=== PATIENT | male | born 1975 | race Caucasian/White ===

== ENCOUNTER 2021-07-15 11:10 | Outpatient (REF) | payer MEDICARE, MEDICAID, SELFPAY | END 2021-07-15 11:11 | disposition home or self-care (01) | LOC: HO.HMGCLDS 11:10 | PROVIDERS: Visit Provider Internal Medicine | DX: Z20.822 Contact with and (suspected) exposure to COVID-19 (principal) | CPT/HCPCS: C9803; U0003; U0005 ==

== ENCOUNTER 2021-07-24 11:38 | Emergency (ER) | payer MEDICARE, MEDICAID, SELFPAY ==
[2021-07-24 11:41] VITALS: BP 180/90; PULSE 78; RESP 18; TEMP 36.4; O2SAT 97; BMI 34.2
--- NOTE | 2021-07-24 12:14 | ED.GENADULT ---
HPI - General Adult General Chief complaint: Wound/Laceration Stated complaint: laceration lt thumb Time Seen by Provider: 07/24/21 12:13 Source: patient Limitations: no limitations History of Present Illness HPI narrative: Patient presents to the ER with a laceration to the left thumb. Patient states he was using a tool at home and cut the top of his left thumb. Bleeding was controlled with pressure. Patient believes his tetanus shot is up-to-date as it has been within the last 5 years. Patient has slight pain over the thumb. Patient states he has full range of motion of the thumb and the left hand. No other complaints at this time. Related Data Allergies Allergy/AdvReac Type Severity Reaction Status Date / Time No Known Allergies Allergy Verified 07/24/21 11:40 Review of Systems Review of Systems: Constitutional: No Fever, No Chills ENT/Mouth: No Swallowing Difficulty Cardiovascular: No Chest Pain, No SOB Respiratory: No Cough, No Sputum Gastrointestinal: No Nausea, No Vomiting Musculoskeletal: Left thumb laceration slight pain Skin: Positive laceration left thumb dorsum Neuro: No Weakness, No Numbness, No Dizziness, No Headache Psych: No Anxiety/Panic, No Depression Heme/Lymph: No Bruising, No Lymphadenopathy PMFSH Past Medical History Attestation statement: The following information was validated with the patient. Medical History Torsion, testicular Social History Social History Advance Directives: No Advance Directives Information Provided: No Physical Exam Vital Signs: Vital Signs: Last Vital Signs Temp 97.5 F 07/24/21 11:41 Pulse 78 07/24/21 11:41 Resp 18 07/24/21 11:41 BP 180/90 H 07/24/21 11:41 Pulse Ox 97 07/24/21 11:41 Body Mass Index 34.2 vital signs have been reviewed as normal and appeared to be correct. Blood pressure normal. Heart rate normal. Respiration rate normal. Temperature normal. Oxygen saturation normal. Appearance: Alert. Oriented X3. No acute distress. Head: Normal external exam. Normocephalic. Atraumatic. Eyes: PERRLA. EOMI. Conjunctiva and sclera normal. ENT: Pharynx normal. Uvula midline. Moist mucous membranes. Back: Full range of motion noted. Skin: 2 cm laceration on the dorsum of the left thumb approximately the D IP joint positive capillary refill positive proximal pulses Extremities: Full flexion and extension of the left hand and left thumb. Neuro: Oriented X 3. No motor deficit. No sensory deficit. Reflexes normal. Course Course Course Narrative: Left thumb 2 cm laceration Left thumb abrasion Left thumb strain Patient's tetanus status is up-to-date. Procedures Procedure Narrative Procedure Narrative: Left thumb laceration 2 cm dorsum aspect Wound cleaned with Betadine saline Anesthetized with 1% lidocaine Irrigated with saline Betadine and copiously pro foreign body Patient has full range of motion of the left thumb. Positive flexion and extension 4.0 nylon times x5 Wound dressed and splinted Discharge Plan Discharge Clinical Impression: Laceration of thumb Qualifiers: Encounter type: initial encounter Damage to nail status: without damage Foreign body presence: without foreign body Laterality: left Qualified Code(s): S61.012A - Laceration without foreign body of left thumb without damage to nail, initial encounter Patient Disposition: Home, Self-Care Instructions: Laceration (ED) Additional Instructions: Suture removal 7-10 days keep wound clean and dry Avoid overuse of the left thumb to avoid wound dehiscence
[2021-07-24] MEDS: Lidocaine HCl 1 % 20 ML VIAL INFILTRATI (12:21)
== END 2021-07-24 13:07 | disposition home or self-care (01) ==
PROVIDERS: Emergency Provider Emergency Medicine
DX: S61.012A Laceration without foreign body of left thumb without damage to nail, initial encounter (principal); S60.312A Abrasion of left thumb, initial encounter; M79.642 Pain in left hand; W27.8XXA Contact with other nonpowered hand tool, initial encounter; Y93.9 Activity, unspecified; Y92.009 Unspecified place in unspecified non-institutional (private) residence as the place of occurrence of the external cause; Y99.9 Unspecified external cause status
CPT/HCPCS: 12001; 99283; 99284

== ENCOUNTER 2021-08-19 07:22 | Emergency (ER) | payer MEDICARE, MEDICAID, SELFPAY ==
--- NOTE | ~2021-08-19 | XR_ITS ---
EXAMINATION: XR CHEST CLINICAL INFORMATION: Cough. COMPARISON: None TECHNIQUE: Frontal view of the chest was obtained. FINDINGS: No significant abnormality is noted involving the heart, lungs, mediastinum, bony thorax or soft tissues. XR/XR chest 1V IMPRESSION: Unremarkable chest exam
[2021-08-19 07:32] VITALS: BP 169/99; PULSE 116; RESP 18; TEMP 36.6; O2SAT 96; BMI 34.2
--- NOTE | 2021-08-19 07:36 | ED.ASTHMA ---
HPI - Asthma General Chief Complaint: Dyspnea Stated Complaint: difficulty breathing Time Seen by Provider: 08/19/21 07:31 Source: patient Mode of arrival: ambulatory Limitations: no limitations History of Present Illness MD complaint: asthma attack , shortness of breath and wheezing Onset (ago): day(s) (3) Severity: moderate Context: none known Associated symptoms: productive cough Treatments Prior to Arrival: other (ran out of INH) Related Data Previous Rx's Medication Instructions Recorded albuterol sulfate 90 mcg/actuation 2 puff INHALATION QID PRN #6.7 g 08/19/21 aerosol inhaler prednisone 20 mg tablet 60 mg PO DAILY 4 Days #12 tab 08/19/21 Allergies Allergy/AdvReac Type Severity Reaction Status Date / Time No Known Allergies Allergy Verified 07/24/21 11:40 Review of Systems Review of Systems: Constitutional : No Fever, No Chills ENT/Mouth : No Hoarseness, No sore throat, No Rhinorrhea Eyes: No Redness, No Discharge, No Vision Changes Cardiovascular : No Chest Pain, positive SOB, positive Dyspnea on Exertion, No Edema Respiratory : positive Cough, No Sputum, positive Wheezing, Gastrointestinal : No Nausea, No Vomiting, No Diarrhea, No abdominal Pain Genitourinary : No Dysuria, No Hematuria Musculoskeletal : No joint pain, No Myalgias Skin : No rash Neuro : No Weakness, No Numbness, No Headache Psych : No anxiety, depression Heme/Lymph: No Bruising, No Bleeding Endocrine : No Polyuria, No Polydipsia All other systems reviewed and are negative PMFSH Past Medical History Attestation statement: The following information was validated with the patient. Medical History Asthma Torsion, testicular Social History Social History (Updated 08/19/21 @ 07:36 by Genesis Rueda DO) Alcohol intake: never Patient Tobacco Use Status: Current everyday Tobacco user Use of substances other than those prescribed or required for medical reasons: No Advance Directives: No Physical Exam Vital Signs: Vital Signs: Last Vital Signs Temp 98 F 08/19/21 07:32 Pulse 82 08/19/21 08:41 Resp 18 08/19/21 07:32 BP 169/99 H 08/19/21 07:32 Pulse Ox 96 08/19/21 07:32 Body Mass Index 34.2 Appearance: Alert. Oriented X3. No acute distress. Eyes: Pupils equal, round and reactive to light. ENT: Pharynx normal. Neck: Normal inspection. Neck supple. CVS: Normal heart rate and rhythm. Pulses normal. Respiratory: No respiratory distress. Breath sounds diffuse mild end exp wheezes Abdomen: Soft and nontender. Skin: Skin warm and dry. Normal skin color. Normal skin turgor. Extremities: No lower extremity edema. No calf ttp Neuro: Oriented X 3. No motor deficit. No sensory deficit. Course Course Course Narrative: negative COVID, negative chest xray he is improved, no hypoxia stable for DC MDM - Asthma MDM Narrative Medical decision making narrative: 46 yo male with asthma attack ran out of INH here with wheezing no CP, no fevers he is not vaccinated. At this time 5mg neb, PO steroids, CXR for pneumonia, COVID swab ordered. Dispo per improvement with treatments. Lab Data Labs: Lab Results 08/19/21 Range/Units 07:50 COVID-19 ([facility]) Negative (Negative) COVID-19 Clin Com See Note Discharge Plan Discharge Clinical Impression: Asthma with exacerbation Qualifiers: Asthma severity: moderate Asthma persistence: persistent Qualified Code(s): J45.41 - Moderate persistent asthma with (acute) exacerbation Patient Disposition: Home, Self-Care Instructions: Asthma (ED) Additional Instructions: return to ED for any worsening symptoms or concerns NEGATIVE COVID Prescriptions: New prednisone 20 mg tablet 60 mg PO DAILY 4 Days Qty: 12 RF: 0 albuterol sulfate 90 mcg/actuation HFA aerosol inhaler 2 puff inhalation QID PRN (Reason: shortness of breath or wheezing) Qty: 6.7 RF: 0 Referrals: Physician,None [Primary Care Provider] - 2 days Stand Alone Forms: Work/School Release
[2021-08-19] MEDS: predniSONE 20 MG TABLET 60 MG PO (07:49)
[2021-08-19 08:24] LABS: COVID-19 Test Negative (Negative); IDNOW Serial# 08D9AD1C
--- NOTE | 2021-08-19 08:27 | PC.NURSE ---
0809 resp called for 2nd time for treatment
[2021-08-19] MEDS: Albuterol Sulfate (0.083%) 2.5 MG/3 ML VIAL.NEB 5 MG INHALE (08:39)
[2021-08-19 08:41] VITALS: PULSE 82; O2SAT 95
== END 2021-08-19 09:33 | disposition home or self-care (01) ==
PROVIDERS: Emergency Provider Emergency Medicine
DX: J45.41 Moderate persistent asthma with (acute) exacerbation (principal); R06.00 Dyspnea, unspecified; F17.200 Nicotine dependence, unspecified, uncomplicated; Z71.6 Tobacco abuse counseling; Z79.899 Other long term (current) drug therapy
CPT/HCPCS: 36415; 71045; 87635; 94640; 99284

== ENCOUNTER 2021-08-20 05:53 | Inpatient (IN) | payer MEDICARE, MEDICAID, SELFPAY ==
[2021-08-20] VITALS (13 sets, daily range): BP systolic 136–187; BP diastolic 72–111; PULSE 72–112; RESP 16–20; TEMP 36.6–37.5; O2SAT 89–98; BMI 34.2
--- NOTE | ~2021-08-20 | XR_ITS ---
EXAMINATION: XR CHEST CLINICAL INFORMATION: Asthma attack. Shortness of breath. Rule out pneumonia. COMPARISON: Previous chest x-ray from yesterday TECHNIQUE: 2 views of the chest were obtained. FINDINGS: The cardiac and mediastinal contours are normal. The lungs are clear. There is no pleural effusion or pneumothorax. There are degenerative changes of the spine. XR/XR chest 2V IMPRESSION: No evidence for acute disease in the chest.
[2021-08-20] MEDS: Albuterol/Iprat 2.5/0.5MG 3 ML AMPUL.NEB INHALE ×4 (06:11→20:02)
[2021-08-20] MEDS: Albuterol Sulfate (0.083%) 2.5 MG/3 ML VIAL.NEB 5 MG INHALE ×2 (06:11→08:31)
--- NOTE | 2021-08-20 06:11 | ED_ITS ---
HPI - Asthma General Chief Complaint: Asthma Stated Complaint: asthma Time Seen by Provider: 08/20/21 06:03 Source: patient Mode of arrival: EMS Limitations: no limitations History of Present Illness HPI Narrative: Patient history of asthma frequent episodes with it and ran out of his inhaler 2 days ago was seen here yesterday was given nebulizing treatment prednisone chest x-ray was negative COVID test was negative comes back again as does not have any inhaler and could not get the new inhaler additions and covered with wheezing frequent cough saturating 94% room air no chest pain no cardiac history no fever Related Data Previous Rx's Medication Instructions Recorded albuterol sulfate 90 mcg/actuation 2 puff INHALATION QID PRN #6.7 g 08/19/21 aerosol inhaler prednisone 20 mg tablet 60 mg PO DAILY 4 Days #12 tab 08/19/21 albuterol sulfate 2.5 mg INHALATION Q4-6H PRN #180 ml 08/20/21 fluticasone fur. 200 mcg-umeclid 1 inh INHALATION DAILY #60 ea 08/20/21 62.5 mcg-vilant 25 mcg inhalat.powder (Trelegy Ellipta) nebulizers #1 ea 08/20/21 Allergies Allergy/AdvReac Type Severity Reaction Status Date / Time No Known Allergies Allergy Verified 07/24/21 11:40 Review of Systems Review of Systems: Yes all other systems are reviewed and are negative PMFSH Past Medical History Medical History Asthma Torsion, testicular Social History Social History Alcohol intake: never Patient Tobacco Use Status: Current everyday Tobacco user Use of substances other than those prescribed or required for medical reasons: No Advance Directives: No Physical Exam Vital Signs: Vital Signs: Last Vital Signs Temp 98.1 F 08/20/21 06:05 Pulse 86 08/20/21 06:12 Resp 20 08/20/21 06:05 BP 149/80 H 08/20/21 06:05 Pulse Ox 94 08/20/21 06:05 Oxygen Flow Rate 15 08/20/21 06:05 Body Mass Index 34.2 Appearance: Alert. Oriented X3. In moderate distress ENT: Pharynx normal. Oral Mucosa moist Neck: Normal inspection. Neck supple. CVS: Normal heart rate and rhythm. Pulses normal. Respiratory: Mod respiratory distress. With frequent cough unable to speak full sentences without cough Equal air entry bilateral, bilateral wheezing and rhonchi no rales Abdomen: Soft and nontender. Bowel sounds are present, no mass palpable, Skin: Skin warm and dry. Normal skin color. Normal skin turgor. Extremities: No lower extremity edema. No calf tenderness Neuro: Oriented X 3. No motor deficit. Discharge Plan Discharge Clinical Impression: Asthma with acute exacerbation Qualifiers: Asthma severity: moderate Asthma persistence: persistent Qualified Code(s): J45.41 - Moderate persistent asthma with (acute) exacerbation Patient Disposition: Home, Self-Care Instructions: Asthma (ED) Additional Instructions: Use inhaler/nebulizer as advised Continue her prednisone Start on Trelegy inhaler once daily Follow-up with PCP/booking manager Prescriptions: New Trelegy Ellipta 200-62.5-25 mcg blister with device 1 inh inhalation DAILY Qty: 60 RF: 3 (DME) nebulizers Misc See Rx Instructions .Route Qty: 1 RF: 0 albuterol sulfate 2.5 mg /3 mL (0.083 %) solution for nebulization 2.5 mg inhalation Q4-6H PRN (Reason: bronchospasm) Qty: 180 RF: 2 No Action prednisone 20 mg tablet 60 mg PO DAILY 4 Days Qty: 12 RF: 0 albuterol sulfate 90 mcg/actuation HFA aerosol inhaler 2 puff inhalation QID PRN (Reason: shortness of breath or wheezing) Qty: 6.7 RF: 0 Referrals: Kashmir Celestin MD [Physician] - 1 week
[2021-08-20] MEDS: dexAMETHasone 2 MG TABLET 10 MG PO ×2 (06:20→09:45)
[2021-08-20] MEDS: Albuterol Sulfate 90 MCG 8 GM INHALER 4 PUFF INHALE (06:20)
--- NOTE | 2021-08-20 07:56 | ECG_ITS ---
Test Reason : ASTHMA Blood Pressure : / mmHG Vent. Rate : 085 BPM Atrial Rate : 085 BPM P-R Int : 146 ms QRS Dur : 086 ms QT Int : 384 ms P-R-T Axes : 034 002 004 degrees QTc Int : 456 ms Normal sinus rhythm with sinus arrhythmia Normal ECG No previous ECGs available Referred By: Gael Ingram Electronically Signed By:MANUEL ESPINOZA
[2021-08-20 08:30] LABS: MANUAL DIFF FLAG NO
[2021-08-20 08:36] LABS: Hematocrit 45.3 % (42-52); Hemoglobin 15.5 g/dl (14.0-18.0); Imm Gran Abs Auto 0.02 X10*3/uL (0.00-0.03); Imm Gran Pct Auto 0.3 % (0.0-0.4); Lymphocytes Absolute Auto 0.4 X10*3/uL (1.2-4.9); Lymphocytes Percent Auto 5.9 % (20-40); Mean Corpuscular HGB Conc 34.2 g/dl (31.0-36.0); Mean Corpuscular Hemoglobin 31.6 pg (27.0-33.0); Mean Corpuscular Volume 92.3 fL (80-98); Mean Platelet Volume 10.3 fL (9.4-12.4); Monocytes Absolute Auto 0.6 X10*3/uL (0.1-1.2); Monocytes Percent Auto 8.4 % (2-11); Neutrophils Absolute Auto 5.8 X10*3/uL (2.0-8.3); Neutrophils Percent Auto 85.4 % (45-73); Platelet Count 216 X10*3/uL (160-400); Red Blood Count 4.91 X10*6/uL (4.60-5.80); Red Cell Distribution Width 12.9 % (11.0-16.0); White Blood Count 6.8 X10*3/uL (4.8-10.8)
[2021-08-20 08:49] LABS: COVID-19 Test Negative (Negative)
[2021-08-20 09:01] LABS: Lactic Acid 3.1 mmol/L (0.5-2.0)
[2021-08-20 09:04] LABS: Troponin-I High Sensitivity 6.1 ng/L (<3.5-35.0)
--- NOTE | 2021-08-20 09:05 | PM.IMHP ---
History of Present Illness Date of Service: 08/20/21 Chief Complaint: shortness of breath and wheezing This is a 46 yo M with a PMH of asthma (since childhood) and suspected allergic rhinitis who presents to the emergency department for the second time in 2 days for complaints of shortness of breath, wheezing and a productive cough (brown/green). The patient presented to the ED yesterday where he was treated with prednisone and albuterol inhalers. His symptoms improved and he was discharged home with a course of oral steroids and albuterol inhaler. The patient was able to sweet pickle maker his prednisone but not his inhaler and so he presented to the ED with the same complaints again. He was again treated in the hospital, given an albuterol inhalers to go home with. However, he was noted to be hypoxic down to 89% AFTER treatment and so admission was requested. In regards to his asthma history, the patient reports asthma since childhood. He also describes allergic rhinitis symptoms with the change of seasons. He reports he was previously on symbicort and PRN albuterol inh. He reports that he stopped symbicort about 2 years ago due to insurance issues. He reports that since then, he has required daily albuterol use which has increased to 4-5 times a day over the last several day. He reports active tobacco smoking and endorses that he has had a productive cough of brown/green sputum over the last several days. He denies any pleuritic or anginal chest pain. He denies any fevers or chills. He denies any known sick contacts, particularly to COVID 19. He denies being vaccinated against COVID. Review of Systems Review of Systems: General - denies fevers or chills, denies weakness or fatigue HEENT -denies blurred vision, denies headache, denies sore throat Cardiovascular - denies chest pain or palpitations, denies edema Respiratory - +SOB, +productive cough, + wheezing Gastrointestinal - denies abdominal pain, nausea, vomiting, diarrhea - denies flank pain, denies dysuria, denies frequency or urgency Musculoskeletal - denies back pain, denies hip pain, denies knee pain, denies shoulder pain Neurological - denies any focal weakness or numbness Skin, denies any bruising or redness Psychiatric - denies any suicidal ideation, hallucinations, homicidal ideation Endocrinology - denies intolerance to hot / cold temperatures PMFSH Medical History (Updated 08/20/21 @ 11:05 by Nabor Suggs MD) Asthma Family History (Updated 08/20/21 @ 10:51 by Nabor Suggs MD) Other Diabetes mellitus Pertinent family history: . Surgical History (Updated 08/20/21 @ 10:52 by Nabor Suggs MD) Torsion, testicular Social History (Updated 08/20/21 @ 10:53 by Nabor Suggs MD) Alcohol intake: current Alcohol intake frequency: a few times a month Patient Tobacco Use Status: Current everyday Tobacco user Use of substances other than those prescribed or required for medical reasons: No Advance Directives: No Meds Allergies Allergy/AdvReac Type Severity Reaction Status Date / Time No Known Allergies Allergy Verified 07/24/21 11:40 Active Medications: Current Medications Pharmacy Consult (Consult Rx Perform Med Rec) 1 each MISCELLANE ONCE PRN PRN Reason: Consult order Physical Exam Vital Signs and Narrative: Vital Signs: Last Vital Signs Temp 98.1 F 08/20/21 06:05 Pulse 81 08/20/21 08:33 Resp 20 08/20/21 06:05 BP 149/80 H 08/20/21 06:05 Pulse Ox 89 L 08/20/21 07:42 Oxygen Flow Rate 15 08/20/21 06:05 Body Mass Index 34.2 Const: Other: Constitutional - Awake and Alert, respiratory distress with exertion Eyes - PERRLA, EOMI Cardiovascular - S1S2, RRR, No edema Respiratory - diffuse wheezing, no rales, tachypnea with exertion; O2 saturation 89% on RA, high 90s on 1L Gastrointestinal - NT / ND; +BS; No rebound or guarding - No CVA tenderness Extremities - no calf tenderness bilaterally, no swelling Musculoskeletal - Normal inspection, normal ROM Skin - Warm/Dry Neurological - Alert & oriented x3, No focal deficit Psychological - Appropriate affect Results Labs CBC and Chem 7: 08/20/21 08:24 08/20/21 08:24 Labs: Laboratory Results - last 24 hr 08/20/21 08/20/21 08/20/21 08:24 08:24 08:24 MCV 92.3 MCH 31.6 MCHC 34.2 RDW 12.9 Plt Count 216 MPV 10.3 Immature Gran % (Auto) 0.3 Neut % (Auto) 85.4 H Lymph % (Auto) 5.9 L [place] % (Auto) 8.4 Eos % (Auto) 0.0 Baso % (Auto) 0.0 Lymph # (Auto) 0.4 L [place] # (Auto) 0.6 Eos # (Auto) 0.0 Baso # (Auto) 0.0 Abs Immat Gran (auto) 0.02 Absolute Neuts (auto) 5.8 Absolute Nucleated RBC 0.000 Nucleated RBC % (auto) 0.0 Lactic Acid 3.1 H* Troponin I High Sens COVID-19 ([facility]) Negative COVID-19 Clin Com See Note 08/20/21 08:24 MCV MCH MCHC RDW Plt Count MPV Immature Gran % (Auto) Neut % (Auto) Lymph % (Auto) [place] % (Auto) Eos % (Auto) Baso % (Auto) Lymph # (Auto) [place] # (Auto) Eos # (Auto) Baso # (Auto) Abs Immat Gran (auto) Absolute Neuts (auto) Absolute Nucleated RBC Nucleated RBC % (auto) Lactic Acid Troponin I High Sens 6.1 COVID-19 ([facility]) COVID-19 Clin Com ECG Attestation: I personally reviewed and interpreted this ECG as follows: (NSR) Imaging Comment: CXR - no acute findings Assessment and Plan (1) Acute respiratory failure with hypoxia: Status: Acute (2) Asthma with acute exacerbation: Qualifiers: Asthma persistence: persistent Asthma severity: moderate Qualified Code(s): J45.41 - Moderate persistent asthma with (acute) exacerbation Status: Acute This is a 46 yo M who is an active tobacco smoker and has a baseline history of asthma which was previously controlled with symbicort. He has been on his controlled inhalers for >2 years and has been using PRN albuterol daily. He now presents to the hospital for the second time in 2 days with complaints of shortness of breath, wheezing and a productive cough. He was found to be hypoxic post treatment in the ED. He has failed outpatient treatment and furthermore does not have a PCP which limits close outpatient follow up. He will be admitted for further treatment. 1. Acute Respiratory Failure with hypoxia Due to Asthma exacerbation + bacterial bronchitis Continue 1-2L O2 by NC - wean as tolerated 2. Asthma exacerbation Due to non-compliance with controlled medications Start IV solu-medrol Start DuoNebs scheduled + PRN Will need outpatient follow up with a PCP and/or cyber engineer. He does smoke 1 PPD so he now may have COPD as well. 3. Suspected bacterial bronchitis IV doxy 4. Lactic acidosis Suspect from neb Rx and not severe sepsis. Given fluid bolus by ED 5. Transaminitis Bili wnl and no abdominal symptoms Not in the usual 2:1 (AST/ALT) fashion seen with EtOH use (Patient also endorses drinking a few beers once a week). Trend. If increasing, further work up Will need outpatient follow up Full Code DVT pptx, Lovneox Given his failure of outpatient treatment and hypoxia post treatment, I anticipate he will need 2-3 days of systemic steroids and scheduled nebulizers for stabilization. Quality Stroke Does the patient have a stroke diagnosis?: No VTE Prior VTE?: No VTE Risk Level:: Medical - moderate - high VTE Device Contraindication: N/A - Device Ordered VTE Drug Contraindication: N/A - Med Ordered
[2021-08-20 09:10] LABS: Alanine Aminotransferase 157 U/L (0-40); Albumin Level 4.2 g/dL (3.5-5.0); Alkaline Phosphatase 77 U/L (39-117); Anion Gap 14 (12-20); Aspartate Amino Transferase 101 U/L (5-37); Bilirubin Total 0.7 mg/dL (0.0-1.0); Blood Urea Nitrogen 8 mg/dL (9-16); Calcium 9.4 mg/dL (8.4-10.2); Carbon Dioxide 24 mmol/L (22-29); Chloride 106 mmol/L (96-108); Creatinine Clr Calc Pharmacy 144.4; Estimated Glomerular Filt Rate > 60; Glucose Random 137 mg/dL (60-115); Sodium 140 mmol/L (135-145); Total Protein 7.7 g/dL (6.5-8.0)
[2021-08-20] MEDS: Doxycycline Hyclate 100 MG in 0.9 % Sodium Chloride 250 ML 166.67 MG IV ×2 (09:33→20:44)
[2021-08-20] MEDS: Enoxaparin Sodium 40 MG/0.4 ML SYRINGE SUBCUT (09:45)
[2021-08-20] MEDS: 0.9 % Sodium Chloride 3,061.74 ML 3061.74 ML IV (10:11)
[2021-08-20 10:28] LABS: Reflex Lactate? Lactic Acid Added
[2021-08-20 11:24] LABS: ~Lactic Acid-LAB USE ONLY 3.2 mmol/L (0.5-2.0)
[2021-08-20 13:03] LABS: Reflex Lactate? 2 Y
[2021-08-20 14:29] LABS: ~Lactic Acid-LAB USE ONLY 3.8 mmol/L (0.5-2.0)
[2021-08-20] MEDS: 0.9 % Sodium Chloride Flush 3 ML SYRINGE IVFLUSH (14:55)
[2021-08-20] MEDS: Nicotine 14 MG PATCH.TD24 TRANSDERMA (14:55)
[2021-08-21] VITALS (9 sets, daily range): BP systolic 149–180; BP diastolic 79–90; PULSE 60–75; RESP 14–18; TEMP 36.3–36.9; O2SAT 94–98
[2021-08-21] MEDS: Albuterol/Iprat 2.5/0.5MG 3 ML AMPUL.NEB INHALE ×3 (07:55→21:11)
[2021-08-21] MEDS: Nicotine 14 MG PATCH.TD24 TRANSDERMA (08:26)
[2021-08-21] MEDS: Enoxaparin Sodium 40 MG/0.4 ML SYRINGE SUBCUT (08:27)
[2021-08-21] MEDS: methylPREDNISolone Sod Succ 40 MG/ML VIAL IVPUSH ×2 (09:35→20:24)
[2021-08-21] MEDS: Doxycycline Hyclate 100 MG in 0.9 % Sodium Chloride 250 ML 166.67 MG IV ×2 (09:36→20:24)
[2021-08-21 12:38] LABS: Alanine Aminotransferase 130 U/L (0-40); Albumin Level 3.9 g/dL (3.5-5.0); Alkaline Phosphatase 71 U/L (39-117); Anion Gap 12 (12-20); Aspartate Amino Transferase 73 U/L (5-37); Bilirubin Direct 0.6 mg/dL (0.0-0.5); Bilirubin Total 1.1 mg/dL (0.0-1.0); Blood Urea Nitrogen 14 mg/dL (9-16); Calcium 9.1 mg/dL (8.4-10.2); Carbon Dioxide 25 mmol/L (22-29); Chloride 105 mmol/L (96-108); Creatinine Clr Calc Pharmacy 130.3; Estimated Glomerular Filt Rate > 60; Glucose Random 133 mg/dL (60-115); Potassium 4.2 mmol/L (3.3-5.1); Sodium 138 mmol/L (135-145); Total Protein 7.1 g/dL (6.5-8.0)
--- NOTE | 2021-08-21 14:27 | MHC.CM.PN ---
IMM 08/21/21, EMR REVIEWED PT ADMITTED W/SOB, PT REPORTS HE RAN OUT OF HIS ALBUTEROL INHALER AND IT WAS SOON TO GET IT FILLED. PT REPORTS LIVING IN [place]T ALONE, IS INDEPENDENT W/ALL CARE, NO DME AND NO HOME SERVICES, PT HAS NO PCP AND WAS [place]/[facility] [place] [facility] [place]. PT PROVIDED W/INFORMATION ON A HCP AND IS CURRENTLY DECLINING. PT DID REQUEST WE ADD HIS GF HIS NEXT OF KIN, CM HAS CONTACTED REGISTRATION AND GIVEN THEM PTS GF'S NAME AND NUMBER SHARDA GISELLA [phone]. D/C PLAN: [place] SELF-CARE, [facility] [place]
--- NOTE | 2021-08-21 14:50 | HO.PM.IMPN ---
Subjective Subjective Date of Service: 08/21/21 Interval History: Seen and examined this morning follow up for asthma exacerbation No documented overnight events Reports improvement in breathing, still intermittent shortness of breath. Still with cough Denies fever, chills Review of Systems Review of Systems: Yes all other systems are reviewed and are negative Constitutional Constitutional: Denies chills and Denies fever(s) Cardiovascular Cardiovascular: Denies chest pain Gastrointestinal Gastrointestinal: Denies abdominal pain Physical Exam Vital Signs: Vital Signs: Last Vital Signs Temp 98.3 F 08/21/21 07:42 Pulse 60 08/21/21 14:33 Resp 18 08/21/21 11:36 BP 149/82 H 08/21/21 11:36 Pulse Ox 96 08/21/21 11:36 Oxygen Flow Rate 15 08/20/21 06:05 Body Mass Index 34.2 Const: Nutritional Appearance: well nourished Orientation/consciousness: patient oriented x3 HENMT: Head: Yes normocephalic and Yes atraumatic Eyes: Sclerae: sclerae normal Chest: Chest palpation & inspection: normal inspection of the chest Resp: Other: Prolonged expiratory effort, expiratory wheezing Effort & Inspection: normal respiratory effort and no respiratory distress Auscultation: wheezes Cardio: Rate: regular rate Rhythm: regular rhythm GI: Palpation (GI): Soft to palpation and nontender Neuro: General: patient oriented x3 Cranial nerves: Yes CN's II-XII intact bilaterally and Yes Bilaterally intact EOM present Objective Data Active Medications Acetaminophen (Acetaminophen 325 Mg Tablet) 650 mg PO Q6H PRN PRN Reason: Pain, Mild (Pain Scale 1-3) Albuterol/Ipratropium (Albuterol/Iprat 2.5/0.5mg 3 Ml Ampul.Neb) 3 ml INHALE RQ4H WHILE AWAKE [facility] Last Admin: 08/21/21 14:31 Dose: 3 ml Documented by: VENTURA Enoxaparin Sodium (Enoxaparin Sodium 40 Mg/0.4 Ml Syringe) 40 mg SUBCUT Q24H [facility] Last Admin: 08/21/21 08:27 Dose: 40 mg Documented by: ALDAIR Doxycycline Hyclate 100 mg/ (Sodium Chloride) 250 mls @ 166.67 mls/hr IV Q12H [facility] Last Infusion: 08/21/21 11:12 Dose: 166.67 mls/hr Documented by: ALDAIR Methylprednisolone Sodium Succinate (Methylprednisolone Sod Succ 40 Mg/Ml Vial) 40 mg IVPUSH BID [facility] Last Admin: 08/21/21 09:35 Dose: 40 mg Documented by: ALDAIR Nicotine (Nicotine 14 Mg Patch.Td24) 14 mg TRANSDERMA DAILY [facility] Last Admin: 08/21/21 08:26 Dose: 14 mg Documented by: ALDAIR Nicotine Polacrilex (Nicotine Polacrilex 2 Mg Gum) 2 mg BUCCAL Q2H PRN PRN Reason: Nicotine Cravings Ondansetron HCl (Ondansetron Hcl 4 Mg/2 Ml Vial) 4 mg IVPUSH Q8H PRN PRN Reason: Nausea and Vomiting Pharmacy Consult (Consult Rx Perform Med Rec) 1 each MISCELLANE ONCE PRN PRN Reason: Consult order Sodium Chloride (0.9 % Sodium Chloride Flush 3 Ml Syringe) 3 ml IVFLUSH QSHIFT [facility] Last Admin: 08/21/21 08:27 Dose: Not Given Documented by: ALDAIR Non-Admin Reason: No Access Labs CBC & Chem 7: 08/20/21 08:24 08/21/21 11:59 Labs: Laboratory Results - last 24 hr 08/21/21 11:59 Anion Gap 12 Estim Creat Clear Calc 130.3 Estimated GFR > 60 Random Glucose 133 H Calcium 9.1 Total Bilirubin 1.1 H Direct Bilirubin 0.6 H AST 73 H ALT 130 H Alkaline Phosphatase 71 Total Protein 7.1 Albumin 3.9 Assessment and Plan (1) Acute respiratory failure with hypoxia: Status: Acute (2) Asthma with acute exacerbation: Status: Acute Assessment and Plan: This is a 46 yo M who is an active tobacco smoker and has a baseline history of asthma which was previously controlled with symbicort. He has been on his controlled inhalers for >2 years and has been using PRN albuterol daily. He now presents to the hospital for the second time in 2 days with complaints of shortness of breath, wheezing and a productive cough. He was found to be hypoxic post treatment in the ED. He has failed outpatient treatment and furthermore does not have a PCP which limits close outpatient follow up. He will be admitted for further treatment. 1. Acute Respiratory Failure with hypoxia Due to Asthma exacerbation + bacterial bronchitis Currently on room air 2. 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 He does smoke 1 PPD so he now may have COPD as well. 3. Suspected bacterial bronchitis IV doxy 4. Lactic acidosis Suspect from neb Rx and not severe sepsis. Given fluid bolus by ED 5. Transaminitis no abdominal symptoms Not in the usual 2:1 (AST/ALT) fashion seen with EtOH use (Patient also endorses drinking a few beers once a week). Follow LFTs 6. tobacco dependence Smoking cessation advised NRT Full Code DVT pptx, Lovneox Quality Stroke Does the patient have a stroke diagnosis?: No VTE Prior VTE?: No VTE Risk Level:: Medical - moderate - high VTE Device Contraindication: N/A - Device Ordered VTE Drug Contraindication: N/A - Med Ordered
[2021-08-21] MEDS: 0.9 % Sodium Chloride Flush 3 ML SYRINGE IVFLUSH ×2 (16:20→23:15)
[2021-08-22] VITALS: BP 141/86; PULSE 62; RESP 17; TEMP 36.2; O2SAT 96
[2021-08-22 03:54] VITALS: BP 154/68; PULSE 56; RESP 17; TEMP 36.7; O2SAT 97
[2021-08-22 06:48] LABS: Alanine Aminotransferase 152 U/L (0-40); Albumin Level 3.8 g/dL (3.5-5.0); Alkaline Phosphatase 66 U/L (39-117); Aspartate Amino Transferase 85 U/L (5-37); Bilirubin Direct 0.6 mg/dL (0.0-0.5); Bilirubin Total 1.2 mg/dL (0.0-1.0); Total Protein 6.9 g/dL (6.5-8.0)
[2021-08-22 07:36] VITALS: BP 174/90; PULSE 71; RESP 18; TEMP 36.2; O2SAT 97
[2021-08-22] MEDS: methylPREDNISolone Sod Succ 40 MG/ML VIAL IVPUSH (10:20)
[2021-08-22] MEDS: Doxycycline Hyclate 100 MG in 0.9 % Sodium Chloride 250 ML 166.67 MG IV (10:20)
[2021-08-22 10:21] VITALS: BP 174/90; PULSE 71
[2021-08-22] MEDS: Nicotine 14 MG PATCH.TD24 TRANSDERMA (10:21)
[2021-08-22] MEDS: amLODIPine Besylate 5 MG TABLET PO (10:21)
[2021-08-22] MEDS: 0.9 % Sodium Chloride Flush 3 ML SYRINGE IVFLUSH (10:22)
[2021-08-22 11:19] VITALS: BP 176/92; PULSE 66; RESP 18; TEMP 36.2; O2SAT 95
--- NOTE | 2021-08-22 13:47 | MHC.CM.PN ---
CM MET W/PT WHO REPORTS HE IS MOTIVATED TO FOLLOW THROUGH WITH SIGNING UP FOR A PCP, PT ALSO MET W/FS AND DECLINED TO [place]FR [place] AT THIS TIME, PT DISCHARGED HOME SELF-CARE, PT GIVEN [facility] [facility].
--- NOTE | 2021-08-22 15:06 | P.DS_ITS ---
DS: Providers Provider Date of Service: 08/22/21 Date of admission: 08/20/21 08:57 Primary care physician: Unknown Physician DS: Diagnosis Discharge Diagnosis (1) Acute respiratory failure with hypoxia: Status: Acute (2) Asthma with acute exacerbation: Status: Acute (3) Acute bacterial bronchitis: Status: Acute (4) Hypertension: Status: Acute DS: Summary Hospital Course Hospital Course: Patient was treated with supplemental oxygen, scheduled bronchodilators, IV systemic steroids and, IV doxycycline. Over the course of 48 hours, the patient has significant improvement in his respiratory symptoms. He was able to be weaned from oxygen to room air which he was tolerating even with ambulation. His steroids were changed from IV Solu-Medrol to oral prednisone. He will be discharged on a course of oral doxycycline. He has been prescribed p.r.n. albuterol inhaler as well as been started on Flovent for maintenance of his asthma. He has been referred to Pulmonary for outpatient formal PFTs. He has been advise complete tobacco cessation and also has been prescribed nicotine replacement therapy with Nicoderm patch. Of note, patient was found to be hypertensive in the hospital ranging from 150- 170 range. He had no prior formal diagnosis of elevated blood pressures. He has been started on 5 mg of Norvasc and a side-effect profile has been explained. Lastly, the patient does not have a primary care provider. He was given a list of providers and has been encouraged to call and schedule follow-up. Time Spent with Patient Time attestation: Total time spent providing and/or coordinating discharge services: Discharge coordination time: Greater than 30 minutes Quality: Stroke Does the patient have a stroke diagnosis?: No Physical Exam Vital Signs: Vital Signs: Last Vital Signs Temp 97.2 F 08/22/21 11:19 Pulse 66 08/22/21 11:19 Resp 18 08/22/21 11:19 BP 176/92 H 08/22/21 11:19 Pulse Ox 95 08/22/21 11:19 Oxygen Flow Rate 15 08/20/21 06:05 Body Mass Index 34.2 Const: Other: General - no acute distress, appears comfortable Cardiovascular - regular rate and rhythm, S1-S2 Lungs - normal respiratory effort, clear to auscultation bilaterally, no wheezing Abdomen - soft, nontender, no rebound or guarding Extremities - no edema bilaterally Neuro - awake and alert, no focal deficits DS: Data Data Completed and Pending Labs on day of discharge: Laboratory Results - last 24 hr 08/22/21 06:11 Total Bilirubin 1.2 H Direct Bilirubin 0.6 H AST 85 H ALT 152 H Alkaline Phosphatase 66 Total Protein 6.9 Albumin 3.8 Discharge Plan Discharge Patient Disposition: Home, Self-Care Discharge Diagnosis: Asthma exacerbation Referrals: Kashmir Celestin MD [Physician] - 1 week Physician,Unknown [Primary Care Provider] - 1 Week Discharge Medications: New (DME) nebulizers Misc See Rx Instructions .Route Qty: 1 RF: 0 doxycycline hyclate 100 mg tablet 100 mg PO BID Qty: 10 RF: 0 amlodipine [Norvasc] 5 mg tablet 5 mg PO DAILY Qty: 90 RF: 0 nicotine [Nicoderm CQ] 14 mg/24 hr patch 24 hour 1 patch transdermal DAILY Qty: 14 RF: 0 Flovent HFA 110 mcg/actuation HFA aerosol inhaler 1 puff inhalation BID Qty: 12 RF: 0 Continued prednisone 20 mg tablet 60 mg PO DAILY 4 Days Qty: 12 RF: 0 albuterol sulfate 90 mcg/actuation HFA aerosol inhaler 2 puff inhalation QID PRN (Reason: shortness of breath or wheezing) Qty: 6.7 RF: 0 Discharge Orders: Discharge Order (Routine); Ordered 08/22/21 Ordered By: Nabor Suggs Diet: advance to usual diet Activity on Discharge: As tolerated Stand Alone Forms: Patient Portal Discharge page, Work/School Release Care Plan Goals: To stay healthy and out of the hospital. Health Concerns: asthma/bronchitis elevated blood pressure Plan of Treatment: finish course of prednisone and antibiotics start using new inhaler flovent scheduled as directed; use albuterol as needed for shortness of breath or wheezing. 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
== END 2021-08-22 13:48 | disposition home or self-care (01) | DRG 202 ==
LOC: HO.ED 07:36 → HO.EDOVER 09:45 → HO.S3 10:13
PROVIDERS: Admitting Provider Family Medicine; Emergency Provider Emergency Medicine Emergency Medical Services; Visit Provider Physician Assistant Medical
DX: J20.9 Acute bronchitis, unspecified (principal); J96.01 Acute respiratory failure with hypoxia; J45.41 Moderate persistent asthma with (acute) exacerbation; E87.2 Acidosis; I10 Essential (primary) hypertension; F17.210 Nicotine dependence, cigarettes, uncomplicated; Z71.6 Tobacco abuse counseling; Z20.822 Contact with and (suspected) exposure to COVID-19; Z79.899 Other long term (current) drug therapy
CPT/HCPCS: 36415; 71045; 71046; 80048; 80053; 80076; 83605; 84484; 85025; 87635; 93005; 94640; 94644; 99284; 99285; J1650; J2920; J8540

== ENCOUNTER 2022-01-15 09:34 | Emergency (ER) | payer MEDICARE, MEDICAID, SELFPAY ==
[2022-01-15 09:51] VITALS: BP 184/91; PULSE 83; RESP 18; TEMP 36.8; O2SAT 95; BMI 33.7
[2022-01-15 10:06] LABS: MANUAL DIFF FLAG NO
[2022-01-15 10:08] LABS: Basophils Percent Auto 0.2 % (0-2); Eosinophils Absolute Auto 0.1 X10*3/uL (0.0-0.4); Eosinophils Percent Auto 1.6 % (0-4); Hematocrit 42.1 % (42.0-52.0); Hemoglobin 14.5 g/dl (14.0-18.0); Imm Gran Abs Auto 0.01 X10*3/uL (0.00-0.03); Imm Gran Pct Auto 0.2 % (0.0-0.4); Lymphocytes Percent Auto 20.4 % (20-40); Mean Corpuscular HGB Conc 34.4 g/dl (31.0-36.0); Mean Corpuscular Hemoglobin 30.9 pg (27.0-33.0); Mean Corpuscular Volume 89.6 fL (80.0-98.0); Mean Platelet Volume 9.8 fL (9.4-12.4); Monocytes Absolute Auto 0.7 X10*3/uL (0.1-1.2); Monocytes Percent Auto 13.1 % (2-11); Neutrophils Absolute Auto 3.3 x10*3/uL (2.0-8.3); Neutrophils Percent Auto 64.5 % (45-73); Platelet Count 159 X10*3/uL (160-400); Red Cell Distribution Width 12.2 % (11.0-16.0); White Blood Count 5.1 X10*3/uL (4.8-10.8)
[2022-01-15 10:23] LABS: Ethanol 26 mg/dL
[2022-01-15] MEDS: LORazepam 1 MG TABLET 2 MG PO (11:03)
--- NOTE | 2022-01-15 11:22 | ED.ALCOHOL ---
HPI - Alcohol General Chief Complaint: Extremity Injury, Lower Stated Complaint: etoh withdrawal Time Seen by Provider: 01/15/22 10:42 Source: patient Mode of arrival: ambulatory Limitations: no limitations History of Present Illness HPI narrative: 46 years old male history of chronic alcohol consumption daily drinker, patient is trying to quit drinking alcohol, last drink was about 8 hours ago, patient is complaining of slight anxiety, feeling jittery and dizzy. Patient in the emergency department not showing major sign of withdrawal, no tongue fasciculation no severe agitation, no auditory disturbance, no headache, no nausea or vomiting, no visual disturbance. Estimated initial CIWA score is 8. Patient do not want to be going to a rehab facility worries to lose his new job. Related Data Previous Rx's Medication Instructions Recorded albuterol sulfate 90 mcg/actuation 2 puff INHALATION QID PRN #6.7 g 08/19/21 aerosol inhaler prednisone 20 mg tablet 60 mg PO DAILY 4 Days #12 tab 08/19/21 nebulizers #1 ea 08/20/21 amlodipine 5 mg tablet (Norvasc) 5 mg PO DAILY #90 tab 08/22/21 doxycycline hyclate 100 mg tablet 100 mg PO BID #10 tab 08/22/21 fluticasone propionate 110 1 puff INHALATION BID #12 g 08/22/21 mcg/actuation HFA aerosol inhaler (Flovent HFA) nicotine 14 mg/24 hr daily 1 patch TRANSDERMAL DAILY #14 ea 08/22/21 transdermal patch (Nicoderm CQ) chlordiazepoxide HCl 10 mg capsule 10 mg PO BID PRN #10 cap 01/15/22 Allergies Allergy/AdvReac Type Severity Reaction Status Date / Time No Known Allergies Allergy Verified 07/24/21 11:40 Review of Systems Review of Systems: All other systems are reviewed and are negative Constitutional: Reports as per HPI and Reports no additional constitutional complaints Eyes: Reports as per HPI and Reports no additional eye complaints Reports system reviewed and no additional complaints, except as documented Cardiovascular: Reports as per HPI and Reports no additional cardiovascular complaints Respiratory: Reports as per HPI and Reports no additional respiratory complaints Gastrointestinal: Reports as per HPI and Reports no additional gastrointestinal complaints Genitourinary: Reports no additional female genitourinary complaints Musculoskeletal: Reports no additional musculoskeletal complaints Skin/Breast: Reports system reviewed and no additional complaints, except as docu Psychiatric: Reports no additional psychiatric complaints Endocrine: Reports no additional endocrine complaints Hematologic/Lymphatic: Reports no additional hematologic/lymphatic complaints Allergic/Immunologic: Reports no additional allergic/immunologic complaints Reports system reviewed and no additional complaints, except as documented and Reports Abnormal speech present [facility] Past Medical History Medical History Asthma Surgical History Torsion, testicular Family History Family History Other Diabetes mellitus Social History Social History Household Members: None Housing: Apartment Do you presently have visiting nurse or other home services: No Alcohol intake: current Alcohol intake frequency: a few times a month Patient Tobacco Use Status: Current everyday Tobacco user Tobacco use type: Cigarette Cigarette Packs Per Day: 1 Cigarettes Per Day: 20.0 Substance Use Type: Marijuana Advance Directives: No Advance Directives Information Provided: No service: No Current occupational status: unemployed Physical Exam ED Vital Signs: Vital Signs - 24 hr 01/15/22 09:51 Temperature 98.3 F Pulse Rate 83 Respiratory Rate 18 Blood Pressure 184/91 H Pulse Oximetry 95 BMI result Body Mass Index 33.7 Vital signs have been reviewed as appeared to be correct. Blood pressure elevated. Heart rate normal. Respiration rate normal. Temperature normal. Oxygen saturation normal. Appearance: Alert. Oriented X3. No acute distress, slightly anxious. Head: Normal external exam. Normocephalic. Atraumatic. No Phelan signs noted. No raccoon eyes noted Eyes: PERRLA. EOMI. Conjunctiva and sclera normal. Eyelids normal. ENT: TM's Normal. Pharynx normal. Uvula midline. Moist mucous membranes. No trismus noted. No drooling noted. No muffled voice noted. Neck: Normal inspection. Neck supple. FROM. No adenopathy. Thyroid Normal. No meningeal signs. No neck mass noted. CVS: Normal heart rate and rhythm. Heart sound normal. No murmurs noted. Pulses normal throughout. Respiratory: No respiratory distress. Painless inspiration. Breath sounds normal. No wheezes/rales/rhonchi noted. Chest nontender. No accessory muscle usage noted or decreased air movement noted. Abdomen: Soft and nontender. Bowel sounds normal in all 4 quadrants. No distention noted. No organomegaly noted. No visible injury noted. Back: No CVA tenderness. Full range of motion noted. Skin: Skin warm and dry. Normal skin color. Normal skin turgor. No rashes/lesions/lacerations noted. Extremities: No lower extremity edema. Extremities exhibit normal range of motion. Extremities nontender. Neuro: Oriented X 3. Cranial nerve exam: II-XII are grossly intact No motor deficit. No sensory deficit. Reflexes normal. No tremors, no tongue fasciculation, no visual hallucination, no auditory hallucination. Patient Appearance: Appropriate Patient Orientation: Person, Place, Time and Situation Level of Consciousness: Awake, Appropriate and Alert Patient Behavior: Talkative, Cooperative. Mood Description: Depressed, no SI, no HI, no dilution. Affect Description: Flat. Patient Cognition Impaired: No Ability to Follow Directions: Good Speech Pattern: Spontaneous Speech Memory Description: Intact Hallucinations: Not present. Delusions: Not Present Thought Process: Logical. Thought Content: Unremarkable Depressive Symptoms: Increased anxiety. Judgement: Fair Course Course Course Narrative: Assessment and plan. 46 years old male with chronic alcohol abuse, last drink was 8 hours ago, came in concern of alcohol withdrawal symptoms, patient's CIWA score is 8, patient was given Ativan in the emergency department, patient is declining going to a rehab detox center. Do not meet criteria for hospitalization. Will start the patient on Librium and return if symptoms is worsening. MDM - Alcohol Lab Data Attestation: I reviewed the patient's lab results. Result diagrams: 01/15/22 10:02 Labs: Lab Results 01/15/22 01/15/22 Range/Units 10:02 10:02 WBC 5.1 (4.8-10.8) X10*3/uL RBC 4.70 (4.60-5.80) X10*6/uL Hgb 14.5 (14.0-18.0) g/dl Hct 42.1 (42.0-52.0) % MCV 89.6 (80.0-98.0) fL MCH 30.9 (27.0-33.0) pg MCHC 34.4 (31.0-36.0) g/dl RDW 12.2 (11.0-16.0) % Plt Count 159 L (160-400) X10*3/uL MPV 9.8 (9.4-12.4) fL Immature Gran % (Auto) 0.2 (0.0-0.4) % Neut % (Auto) 64.5 (45-73) % Lymph % (Auto) 20.4 (20-40) % Barnes % (Auto) 13.1 H (2-11) % Eos % (Auto) 1.6 (0-4) % Baso % (Auto) 0.2 (0-2) % Lymph # (Auto) 1.0 L (1.2-4.9) X10*3/uL Barnes # (Auto) 0.7 (0.1-1.2) X10*3/uL Eos # (Auto) 0.1 (0.0-0.4) X10*3/uL Baso # (Auto) 0.0 (0.0-0.2) X10*3/uL Abs Immat Gran (auto) 0.01 (0.00-0.03) X10*3/uL Absolute Neuts (auto) 3.3 (2.0-8.3) x10*3/uL Absolute Nucleated RBC 0.000 (0.0-0.012) X10*3/uL Nucleated RBC % (auto) 0.0 (0.0-0.2) /100WBC Ethyl Alcohol 26 mg/dL Discharge Plan Discharge Clinical Impression: Alcohol withdrawal syndrome Patient Disposition: Home, Self-Care Instructions: Alcohol Withdrawal (ED) Prescriptions: New chlordiazepoxide HCl 10 mg capsule 10 mg PO BID PRN (Reason: agitation) Qty: 10 0RF No Action (DME) nebulizers Misc See Rx Instructions .Route Qty: 1 0RF Rx Instructions: As directed doxycycline hyclate 100 mg tablet 100 mg PO BID Qty: 10 0RF amlodipine [Norvasc] 5 mg tablet 5 mg PO DAILY Qty: 90 0RF nicotine [Nicoderm CQ] 14 mg/24 hr patch 24 hour 1 patch transdermal DAILY Qty: 14 0RF Flovent HFA 110 mcg/actuation HFA aerosol inhaler 1 puff inhalation BID Qty: 12 0RF prednisone 20 mg tablet 60 mg PO DAILY 4 Days Qty: 12 0RF albuterol sulfate 90 mcg/actuation HFA aerosol inhaler 2 puff inhalation QID PRN (Reason: shortness of breath or wheezing) Qty: 6.7 0RF Referrals: Physician,None [Primary Care Provider] - 2 days
[2022-01-15 11:27] LABS: Amphetamine Screen Urine POSITIVE (Not Detect); Barbiturates, Urine Not Detected (Not Detect); Benzodiazepines Screen Urine POSITIVE (Not Detect); Cannabinoid Screen Urine POSITIVE (Not Detect); Cocaine Screen Urine POSITIVE (Not Detect); Fentanyl, urine Not Detected (Not Detect); Opiate Screen Urine Not Detected (Not Detect); Phencyclidine Screen Urine Not Detected (Not Detect)
--- NOTE | 2022-01-15 11:30 | MHC.RECOVSUP ---
? Reason for consult:Recovery Support o Current location: ED 6 o Identified substance use concern: Polysubstance,ETOH - Withdrawal - Support ? Intervention: o Community resources provided o Harm reduction discussion ? Plan: o Referral to CCC o Patient to follow up with [facility] after discharge ? Additional information: Patient refuses to go to detox, patient wants medicine to help with his withdrawel, gave pt. community resources.
[2022-01-15 11:35] VITALS: BP 152/85; PULSE 60; RESP 16
== END 2022-01-15 12:16 | disposition home or self-care (01) ==
PROVIDERS: Emergency Provider Emergency Medicine
DX: F10.130 Alcohol abuse with withdrawal, uncomplicated (principal); Y90.1 Blood alcohol level of 20-39 mg/100 ml; F41.9 Anxiety disorder, unspecified; F11.99 Opioid use, unspecified with unspecified opioid-induced disorder; F12.90 Cannabis use, unspecified, uncomplicated; B19.20 Unspecified viral hepatitis C without hepatic coma; F17.200 Nicotine dependence, unspecified, uncomplicated
CPT/HCPCS: 80307; 82077; 85025; 99283

== ENCOUNTER → 2022-01-16 11:05 | Outpatient (BNVA) | payer MEDICARE, MEDICAID, SELFPAY | LOC: CF 12:33 | PROVIDERS: Visit Provider Internal Medicine | DX: F11.20 Opioid dependence, uncomplicated (principal); F10.10 Alcohol abuse, uncomplicated; B19.20 Unspecified viral hepatitis C without hepatic coma; Z51.81 Encounter for therapeutic drug level monitoring; Z79.899 Other long term (current) drug therapy | CPT/HCPCS: 80305; 99202 ==

== ENCOUNTER 2022-01-19 09:39 | Outpatient (REF) | payer MEDICARE, MEDICAID, SELFPAY ==
[2022-01-19 10:24] LABS: MANUAL DIFF FLAG NO
[2022-01-19 10:38] LABS: INTERNATIONAL NORM RATIO 1.1 (0.9-1.1); Prothrombin Time 12.4 SEC (9.9-13.0)
[2022-01-19 10:39] LABS: Basophils Percent Auto 0.5 % (0-2); Eosinophils Absolute Auto 0.1 X10*3/uL (0.0-0.4); Eosinophils Percent Auto 2.5 % (0-4); Hematocrit 44.8 % (42.0-52.0); Imm Gran Abs Auto 0.01 X10*3/uL (0.00-0.03); Imm Gran Pct Auto 0.2 % (0.0-0.4); Lymphocytes Percent Auto 22.6 % (20-40); Mean Corpuscular HGB Conc 33.5 g/dl (31.0-36.0); Mean Corpuscular Hemoglobin 30.3 pg (27.0-33.0); Mean Corpuscular Volume 90.5 fL (80.0-98.0); Mean Platelet Volume 10.4 fL (9.4-12.4); Monocytes Absolute Auto 0.4 X10*3/uL (0.1-1.2); Monocytes Percent Auto 9.8 % (2-11); Neutrophils Absolute Auto 2.8 x10*3/uL (2.0-8.3); Neutrophils Percent Auto 64.4 % (45-73); Platelet Count 171 X10*3/uL (160-400); Red Blood Count 4.95 X10*6/uL (4.60-5.80); Red Cell Distribution Width 12.2 % (11.0-16.0); White Blood Count 4.4 X10*3/uL (4.8-10.8)
[2022-01-19 10:58] LABS: Alanine Aminotransferase 447 U/L (0-40); Albumin Level 4.1 g/dL (3.5-5.0); Alkaline Phosphatase 93 U/L (39-117); Anion Gap 9 (12-20); Aspartate Amino Transferase 343 U/L (5-37); Bilirubin Direct 0.5 mg/dL (0.0-0.5); Bilirubin Total 0.9 mg/dL (0.0-1.0); Blood Urea Nitrogen 11 mg/dL (9-16); Calcium 9.9 mg/dL (8.4-10.2); Carbon Dioxide 31 mmol/L (22-29); Chloride 102 mmol/L (96-108); Estimated Glomerular Filt Rate > 60; Glucose Random 112 mg/dL (60-115); Potassium 5.2 mmol/L (3.3-5.1); Sodium 137 mmol/L (135-145); Total Protein 8.1 g/dL (6.5-8.0)
[2022-01-19 11:25] LABS: HBS Num1 190.11 mIU/mL (0-7.99); HBc Num1 3.28 S/CO (0.00-0.79); ~Hepatitis B Surface Antibody REACTIVE (Nonreactive)
[2022-01-19 11:47] LABS: Fentanyl, urine Not Detected (Not Detect)
[2022-01-19 12:57] LABS: HBsAGNum1 0.21 S/CO (0.00-0.99); HIV AB/AG Nonreactive (Nonreactive); HIV Num 1 0.09 S/CO (0.00-0.99); Hepatitis B Surface Antigen Negative (Negative)
[2022-01-19 13:20] LABS: HBc Num3 2.99 S/CO; Hepatitis B Core Antibody Reactive (Nonreactive)
[2022-01-21 03:57] LABS: Hepatitis A Antibody IgG REACTIVE (Nonreactive); ~Hepatitis A Antibody IgG 1.06 S/CO (0.00-0.99)
[2022-01-21 11:41] LABS: TS Negative Control Passed; TS Panel A 0; TS Panel B 0; TS Positive Control Passed; TSpotTB Negative (Negative)
[2022-01-21 19:27] LABS: HCV RNA PCR Qn 6.95 Log IU/mL (NOT DETECTED)
[2022-01-24 16:16] LABS: FIB-ALT 393 U/L (9-46); FIB-Alpha-2-Macroglobulin 451 mg/dL (106-279); FIB-Apolipoprotein A1 106 mg/dL (94-176); FIB-GGT 158 U/L (3-95); FIB-Haptoglobin 52 mg/dL (43-212); FIB-Total Bilirubin 0.8 mg/dL (0.2-1.2); Liver Fibrosis Score 0.91; Liver Fibrosis Stage F4; Nec Inflam Act Grade A3; Nec Inflam Act Score 0.97
[2022-01-28 18:06] LABS: HCV Genotype LiPA 1a
== END 2022-01-19 09:40 | disposition home or self-care (01) ==
LOC: HO.LAB 09:39
PROVIDERS: Visit Provider Internal Medicine
DX: Z11.4 Encounter for screening for human immunodeficiency virus [HIV] (principal); Z11.1 Encounter for screening for respiratory tuberculosis; F10.10 Alcohol abuse, uncomplicated; F11.90 Opioid use, unspecified, uncomplicated; B19.20 Unspecified viral hepatitis C without hepatic coma
CPT/HCPCS: 80048; 80076; 80307; 81596; 85025; 85610; 86481; 86704; 86705; 86706; 86708; 87340; 87389; 87522; 87902

== ENCOUNTER → 2022-01-23 10:26 | Outpatient (BNVA) | payer MEDICARE, MEDICAID, SELFPAY | PROVIDERS: Visit Provider Internal Medicine | DX: Z51.81 Encounter for therapeutic drug level monitoring (principal); F11.20 Opioid dependence, uncomplicated; B19.20 Unspecified viral hepatitis C without hepatic coma; R76.8 Other specified abnormal immunological findings in serum | CPT/HCPCS: 80305; 99212 ==

== ENCOUNTER 2022-01-30 10:15 | Outpatient (REF) | payer MEDICARE, MEDICAID, SELFPAY ==
[2022-01-30 12:18] LABS: Hematocrit 43.3 % (42.0-52.0); Hemoglobin 13.9 g/dl (14.0-18.0); Mean Corpuscular HGB Conc 32.1 g/dl (31.0-36.0); Mean Corpuscular Volume 93.3 fL (80.0-98.0); Mean Platelet Volume 11.1 fL (9.4-12.4); Platelet Count 154 X10*3/uL (160-400); Red Blood Count 4.64 X10*6/uL (4.60-5.80); White Blood Count 4.4 X10*3/uL (4.8-10.8)
[2022-01-30 12:20] LABS: INTERNATIONAL NORM RATIO 1.2 (0.9-1.1); Prothrombin Time 13.6 SEC (9.9-13.0)
[2022-01-30 12:44] LABS: Anion Gap 12 (12-20); Blood Urea Nitrogen 10 mg/dL (9-16); Calcium 9.4 mg/dL (8.4-10.2); Carbon Dioxide 27 mmol/L (22-29); Chloride 104 mmol/L (96-108); Estimated Glomerular Filt Rate > 60; Glucose Random 101 mg/dL (60-115); Potassium 4.7 mmol/L (3.3-5.1); Sodium 138 mmol/L (135-145)
[2022-02-02 04:39] LABS: ~Hepatitis C Antibody Reactive (Nonreactive)
[2022-02-02 04:47] LABS: HBsAGNum1 0.23 S/CO (0.00-0.99); Hepatitis B Surface Antigen Negative (Negative)
[2022-02-02 14:46] LABS: Hepatitis B Viral DNA Qn - cp <1.00 NOT DETECTED Log IU/mL (NOT DETECTED); Hepatitis B Viral DNA Qn-IU/mL <10 NOT DETECTED IU/mL (NOT DETECTED)
[2022-02-02 22:10] LABS: HCV RNA PCR Qn 6.82 Log IU/mL (NOT DETECTED)
[2022-02-06 14:06] LABS: Hepatitis BE Antibody NON-REACTIVE (NON-REACTIVE)
[2022-02-06 17:42] LABS: HCV Genotype LiPA 1a
[2022-02-07 21:22] LABS: Hepatitis Delta Antibody NEGATIVE
== END 2022-01-30 10:16 | disposition home or self-care (01) ==
LOC: HO.LAB 10:15
PROVIDERS: Visit Provider Internal Medicine
DX: B19.20 Unspecified viral hepatitis C without hepatic coma (principal); R76.8 Other specified abnormal immunological findings in serum; F11.20 Opioid dependence, uncomplicated; F10.10 Alcohol abuse, uncomplicated
CPT/HCPCS: 36415; 80048; 80305; 85027; 85610; 86692; 86707; 86803; 87340; 87517; 87522; 87902; 99212